=== PATIENT | male | born 1995 | race African-American/Black ===

== ENCOUNTER 2018-12-25 22:27 | Emergency (ER) | payer SELFPAY ==
[~2018-12-25] VITALS: Ht 157.5 cm; Wt 55.0 kg
[2018-12-25 23:21] VITALS: BP 100/60
== END 2018-12-26 02:23 | disposition left against medical advice (07) ==
LOC: ER 22:27
DX: Z53.21 Procedure and treatment not carried out due to patient leaving prior to being seen by health care provider (principal)

== ENCOUNTER 2018-12-28 19:59 | Emergency (ER) | payer MEDICAID ==
[~2018-12-28] VITALS: Ht 165.1 cm; Wt 53.1 kg
[2018-12-28] MEDS ORDERED: IBUPROFEN 600MG TABLET PO ONE (21:30)
[2018-12-28 22:51] VITALS: BP 110/75
== END 2018-12-28 23:16 | disposition home or self-care (01) ==
LOC: ER 19:59
DX: S62.396A Other fracture of fifth metacarpal bone, right hand, initial encounter for closed fracture (principal); W22.8XXA Striking against or struck by other objects, initial encounter; Y93.89 Activity, other specified; Y92.89 Other specified places as the place of occurrence of the external cause; Y99.8 Other external cause status
CPT/HCPCS: 29125; 73130; 99283